=== PATIENT | male | born 1975 | race African-American/Black ===

== ENCOUNTER 2021-11-01 18:27 | Emergency (ER) | payer SELFPAY ==
[~2021-11-01] VITALS: Ht 182.9 cm; Wt 102.0 kg
[~2021-11-01 18:27] MED LIST: ACETTAB3 OR; NO CURRENT MEDS; NO MEDS; PRILOSEC20 MG OR
[2021-11-01 19:40] VITALS: BP 152/98
== END 2021-11-01 20:30 | disposition home or self-care (01) | DRG 301 ==
LOC: ED 18:27
DX: I83.892 Varicose veins of left lower extremity with other complications (principal); H91.90 Unspecified hearing loss, unspecified ear

== ENCOUNTER 2022-02-17 21:14 | Emergency (ER) | payer SELFPAY ==
[~2022-02-17] VITALS: Ht 182.9 cm; Wt 102.0 kg
[2022-02-17 21:24] VITALS: BP 175/115
[2022-02-17 21:30] VITALS: BP 152/124
[2022-02-17 21:46] VITALS: BP 162/121
[2022-02-17 21:55] VITALS: BP 162/96
== END 2022-02-17 22:00 | disposition home or self-care (01) | DRG 301 ==
LOC: ED 21:14
DX: I83.892 Varicose veins of left lower extremity with other complications (principal)

== ENCOUNTER 2024-04-06 12:06 | Emergency (ER) | payer SELFPAY ==
[2024-04-06] VITALS (9 sets, daily range): BP systolic 118–142; BP diastolic 80–104
[~2024-04-06] VITALS: Ht 182.9 cm; Wt 110.0 kg
[~2024-04-06 12:06] MED LIST changes: +ORPHENADRINE C100 M1 PO
[2024-04-06] MEDS ORDERED: TAM75CAP PO (13:46)
== END 2024-04-06 14:08 | disposition home or self-care (01) | DRG 195 ==
LOC: ED 12:06
DX: J10.1 Influenza due to other identified influenza virus with other respiratory manifestations (principal); Z20.822 Contact with and (suspected) exposure to COVID-19